=== PATIENT | female | born 1955 | race Caucasian/White ===

== ENCOUNTER 2019-10-12 02:30 | Emergency (ER) | payer OTHER ==
[~2019-10-12] VITALS: Ht 162.6 cm; Wt 79.5 kg
[2019-10-12] MEDS ORDERED: PRAV40TA3 PO (02:46)
--- NOTE | 2019-10-12 03:01 | NUR ---
Pt ambulated to the bathroom with sitter in attempt to obtain urine specimen. Pt was unable to produce specimen at this time. She denies discomfort.
[2019-10-12 03:10] LABS: BASOPHILS % (AUTO) 0.6 % (0-1); EOSINOPHILS # (AUTO) 0.2 X10'3 (0-0.9); EOSINOPHILS % (AUTO) 3.4 % (0-6); HEMATOCRIT 36.6 % (35.0-45.0); HEMOGLOBIN 12.2 g/dl (12.0-16.0); LYMPHOCYTES # (AUTO) 1.9 X10'3 (1.1-4.8); LYMPHOCYTES % (AUTO) 26.7 % (21-51); MEAN CORPUSCULAR HEMOGLOBIN 31.5 PG (27.0-31.0); MEAN CORPUSCULAR HGB CONC 33.4 g/dL (33.0-36.5); MEAN CORPUSCULAR VOLUME 94.3 FL (78-98); MONOCYTES # (AUTO) 0.6 X10'3 (0-0.9); MONOCYTES % (AUTO) 8.3 % (2-12); NEUTROPHILS # (AUTO) 4.4 X10'3 (1.8-7.7); PLATELET COUNT 262 X10'3 (140-440); RED BLOOD COUNT 3.88 X10'6 (4.20-5.60); RED CELL DISTRIBUTION WIDTH 14.2 % (11.5-14.5); WHITE BLOOD COUNT 7.2 X10'3 (4.5-11.0)
[2019-10-12 03:49] LABS: ALANINE AMINOTRANSFERASE 21 U/L (12-78); ALBUMIN 3.2 G/DL (3.4-5.0); ALBUMIN/GLOBULIN RATIO 1.1 (1.1-1.5); ALKALINE PHOSPHATASE 86 IU/L (46-116); ANION GAP 7 (8-16); ASPARTATE AMINO TRANSFERASE 26 U/L (10-37); BILIRUBIN,TOTAL 0.3 MG/DL (0.1-1.0); BLOOD UREA NITROGEN 13 MG/DL (7-18); BUN/CREATININE RATIO 13.5 (6.6-38.0); CALCIUM 8.9 MG/DL (8.5-10.1); CHLORIDE 110 MMOL/L (99-107); CREATININE 0.96 MG/DL (0.40-0.90); GLUCOSE 117 MG/DL (70-104); POTASSIUM 3.5 MMOL/L (3.5-5.1); SODIUM 144 MMOL/L (135-145); TOTAL PROTEIN 6.2 G/DL (6.4-8.2); eGFR 59 ML/MIN
[2019-10-12 03:58] LABS: ETHANOL < 0.010 GM/DL (0.0-0.010)
[2019-10-12 04:02] LABS: ACETAMINOPHEN < 2.0 UG/ML (10-30)
--- NOTE | 2019-10-12 04:08 | NUR ---
Pt ambulated to the bathroom at this time with sitter in attempt to collect urine. Pt was resting comfortably in bed, denies pain or discomfort.
[2019-10-12 04:25] LABS: URINE HCG NEGATIVE (NEG)
[2019-10-12 04:30] LABS: URINE AMPHETAMINE SCREEN NEGATIVE (Neg); URINE BARBITUATE SCREEN NEGATIVE (Neg); URINE BENZODIAZEPINES SCREEN NEGATIVE (Neg); URINE CANNABINOID SCREEN NEGATIVE (Neg); URINE COCAINE SCREEN NEGATIVE (Neg); URINE METHADONE SCREEN NEGATIVE (Neg); URINE OPIATE SCREEN NEGATIVE (Neg); URINE PHENCYCLIDINE SCREEN NEGATIVE (Neg)
[2019-10-12 04:32] LABS: CLARITY,URINE CLEAR (Clear); COLOR,URINE YELLOW (Yellow); GLUCOSE, URINE NEGATIVE (Neg); KETONES,URINE NEGATIVE (Neg); LEUKOCYTE ESTERASE ,URINE NEGATIVE (Neg); NITRITES, URINE NEGATIVE (Neg); OCCULT BLOOD,URINE TRACE-LYSED (Neg); PH,URINE 6.5 (4.8-8.0); PROTEIN,URINE NEGATIVE (Neg); UROBILINOGEN,URINE 0.2 E.U/dL (0.2-1.0)
[2019-10-12 04:36] LABS: UA COLLECTION TYPE CLN CATCH MIDSTREAM
[2019-10-12 04:40] LABS: BACTERIA,URINE NONE SEEN /HPF (Neg); MUCUS STRANDS NONE SEEN /LPF (Neg); RBC,URINE 0-2 /HPF (0-2); SQUAMOUS EPITHELIAL CELL,UR FEW /LPF (FEW); WBC,URINE NONE SEEN /HPF (0-4)
--- NOTE | 2019-10-12 05:10 | NUR ---
Pt is sleeping comfortably in bed at this time with visible respirations. She does not show signs of pain or distress. Pt is in direct line of sight of the nursing station and has a sitter near bedside.
[2019-10-12] MEDS ORDERED: OLANZapine **IM** 10 mg inj. IM ONE ×2 (07:25→14:50)
--- NOTE | 2019-10-12 07:52 | NUR ---
PT GIVEN COFFEE PER HER REQUEST.
[2019-10-12] MEDS ORDERED: pravastatin 40mg tablet PO SCH (08:00)
--- NOTE | 2019-10-12 10:03 | NUR ---
pt eating breakfast now.
--- NOTE | 2019-10-12 11:00 | NUR ---
Iram at bedside talking with the pt and doing her evaluation.
--- NOTE | 2019-10-12 11:38 | NUR ---
sounds like behavioral health upstairs is planning to take the pt.
--- NOTE | 2019-10-12 13:47 | NUR ---
PATIENT WALKED FROM ER 16 TO BED 27 IN ED OVERFLOW. PATIENT CALM AND COOPERATIVE. SHE REQUESTS HER PHONE BACK. PATIENT INFORMED THAT SHE CAN'T HAVE IT UNTIL SHE LEAVES AND SHE IS UNDERSTANDING AND AGREEABLE.
[2019-10-12] MEDS ORDERED: nicotine 21mg patch - 24 hr TD ONE (14:10)
--- NOTE | 2019-10-12 14:45 | NUR ---
Pt escalating, pt reporting she wants to leave AMA and she has a list of things she needs to do. Pt unreasonable and undirectable. MD Mcdermott updated on pt status, orders to be placed
--- NOTE | 2019-10-12 15:40 | NUR ---
Pt resting peacefully. Pt easily arouses to voice and conscents to EKG.
--- NOTE | 2019-10-12 16:18 | NUR ---
Pt given cup of coffee per pt request and bed adjusted as well. Pt currently awake and talking with sitter at bedside.
--- NOTE | 2019-10-12 16:30 | NUR ---
Pt requesting something to eat. Pt given string cheese, crackers, applesauce and yogurt, pt denies further needs.
[2019-10-12 18:16] VITALS: BP 105/54
--- NOTE | 2019-10-12 20:09 | NUR ---
pt is sitting in bed, occasionally making nonsensical statements about random things. pt believed she was talking on the phone.
[2019-10-12] MEDS ORDERED: NO HOME MEDS (20:52)
== END 2019-10-16 14:44 ==
LOC: ER 02:31
DX: F79 Unspecified intellectual disabilities (principal); F31.9 Bipolar disorder, unspecified; I49.8 Other specified cardiac arrhythmias; Z88.8 Allergy status to other drugs, medicaments and biological substances
CPT/HCPCS: 36415; 80053; 80305; 80320; 80329; 81001; 81025; 84443; 85025; 93005; 96372; 99285; J3490